=== PATIENT | male | born 1960 | race Caucasian/White ===

== ENCOUNTER 2016-12-20 23:24 | Inpatient (IN) | payer MEDICAID, OTHER ==
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
[2016-12-21] MEDS ORDERED: MAGNESIUM HYDROXIDE 2,400 MG/10 ML CUP PO PRN (09:32)
[2016-12-21] MEDS ORDERED: MAG HYDROX/AL HYDROX/SIMETH 30 ML CUP PO PRN (09:32)
[2016-12-21] MEDS ORDERED: ACETAMINOPHEN TAB 325 MG TAB PO PRN (09:32)
[2016-12-21 10:04] VITALS: BMI 37.3
[2016-12-21] MEDS ORDERED: ESCITALOPRAM 10 MG TAB PO SCH (12:30)
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
[2016-12-21] MEDS: ARIPiprazole 5 MG TAB PO SCH (15:05)
[2016-12-21] MEDS: MIRTAZAPINE 15 MG TAB PO SCH (21:41)
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
[2016-12-22] MEDS: ARIPiprazole 5 MG TAB PO SCH (09:00)
[2016-12-22] MEDS: LORazepam 1 MG TAB PO PRN (09:01)
[2016-12-22 09:38] LABS: Basophils % (A) 1 %; CH 32.6; CHCM 34.6; Eosinophils # (A) 0.1 k/uL (0-0.7); Eosinophils % (A) 2 %; HDW 2.51; HGB 15.8 gm/dL (13.0-17.5); Luc # (Auto) 0.08; Luc % (Auto) 1; Lymphocytes % (A) 18 %; MCH 31.7 pg (25.0-35.0); MCHC 33.5 g/dL (31.0-37.0); MCV 94.6 fL (80.0-100.0); Mean Platelet Volume 8.3; Monocytes # (A) 0.4 k/uL (0-1.0); Monocytes % (A) 6 %; Neutrophils % (A) 71 %; RBC 4.96 m/uL (4.30-5.90); RDW 12.6 % (11.5-15.5); WBC 5.5 k/uL (3.8-10.6); WBC (Perox) 5.23
[2016-12-22 09:49] LABS: ALT 38 U/L (21-72); AST 25 U/L (17-59); Alkaline Phosphatase 62 U/L (38-126); Anion Gap 10 mmol/L; Blood Urea Nitrogen 17 mg/dL (9-20); Calcium 9.3 mg/dL (8.4-10.2); Carbon Dioxide 25 mmol/L (22-30); Chloride 107 mmol/L (98-107); Glucose 183 mg/dL (74-99); Non-African American GFR(MDRD) >60 (>60 ml/min/1.73 sqM); Potassium 4.2 mmol/L (3.5-5.1); Sodium 142 mmol/L (137-145); Total Bilirubin 0.7 mg/dL (0.2-1.3)
[2016-12-22] MEDS: FOLIC ACID 1 MG TAB PO SCH (12:40)
[2016-12-22] MEDS: THIAMINE 100 MG TAB PO SCH (12:40)
--- NOTE | 2016-12-22 15:34 | P.PN ---
Progress Note - Text Interval history: Patient seen in cross coverage today for Dr. Nuñez. He reports that he is tossing and turning last night in terms of sleep. Seems to relay that he didn't sleep that well. He is eating well. He does not voice any adverse psychotropic medication side effects. He denies any alcohol withdrawal symptoms. Relays his been taking the Ativan like once a day. He feels his mood is about the same. Mental status exam: He is alert and cooperative with the interview. His speech is fluent, not rapid or pressured. Thought processes are organized. His mood he describes is about the same. He continues to describe some depression. He denies any thoughts of harm to self or others. No evidence of psychosis or agitation. Plan: We'll maintain current psychotropic medications. Dr. Nuñez to initiate care this patient starting tomorrow. Monitor for any medication side effects. Continue to monitor his response to the medication regimen.
[2016-12-22] MEDS: NICOTINE POLACRILEX 2 MG GUM BUCCAL PRN (17:23)
[2016-12-22] MEDS: MIRTAZAPINE 15 MG TAB PO SCH (20:40)
[2016-12-23] MEDS: ARIPiprazole 5 MG TAB PO SCH (08:32)
[2016-12-23] MEDS: NICOTINE POLACRILEX 2 MG GUM BUCCAL PRN (08:32)
[2016-12-23] MEDS: FOLIC ACID 1 MG TAB PO SCH (11:42)
[2016-12-23] MEDS: THIAMINE 100 MG TAB PO SCH (11:42)
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
[2016-12-23] MEDS ORDERED: ARIPiprazole 5 MG TAB PO ONE (12:30)
[2016-12-23] MEDS: LORazepam 1 MG TAB PO PRN (19:52)
[2016-12-23] MEDS: MIRTAZAPINE 15 MG TAB PO SCH (20:57)
[2016-12-23] MEDS ORDERED: cloNIDine HCL 0.1 MG TAB PO STA (21:17)
[2016-12-24] MEDS: ARIPiprazole 10 MG TAB PO SCH (08:52)
[2016-12-24] MEDS: amLODIPine 10 MG TAB PO SCH (08:52)
[2016-12-24] MEDS: FOLIC ACID 1 MG TAB PO SCH (12:26)
[2016-12-24] MEDS: THIAMINE 100 MG TAB PO SCH (12:26)
[2016-12-24] MEDS: NICOTINE POLACRILEX 2 MG GUM BUCCAL PRN ×2 (12:27→20:14)
--- NOTE | 2016-12-24 13:55 | P.PN ---
Progress Note - Text SUBJECTIVE: I reviewed the medical record, interviewed Mr. Silvestre and discuss his treatment and treatment plan during team meeting. He described continued feelings depression. He has occasional thoughts of suicide but denied denied suicidal plan or intent. We talked about the circumstances leading to this admission and he conceded that it may be related to his disappointment with his last three-quarter house. He feels that his depression at admission to the unit was among the most severe case experience recently. He is concerned about recurrent episodes of depression and frustrated that the psychotropic medications have not prevented to recurrence of the depressive episodes. He completed a Rogers Depression Inventory his total score was 31 consistent with severe symptoms of depression. On the suicide question he rated the item "I have thoughts of killing myself, but I would not carry them out." OBJECTIVE: He presented as a casually groomed moderately obese 56-year-old male who was pleasant on approach. He maintained eye contact and attended to interview. He had a distressed facial expression. He showed psychomotor retardation but no abnormal involuntary movements. His speech was spontaneous with decreased rate and rhythm. His affect was depressed and not reactive. He describes suicidal ideations but denied plan or intent. He denied homicidal ideation. He expressed depressive cognitions including hopelessness, helplessness and worthlessness. He obsessed over his illness and ruminated on the recurrent depressive episodes. He did not express ideas reference or paranoid ideation. His thinking was concrete but his associations were coherent and logical. He denied hallucinations and did not appear to be responding to internal stimuli. His blood pressure was elevated on 12/23/2016 with systolic readings in a range of 169-172. He received 0.1 mg Catapres on the evening of 12/23/2016 which brought the blood pressure down to 135/69. His the intravenous restarted Norvasc 10 mg daily and his blood pressure this morning was 147/74. ASSESSMENT: He continues have signs and symptoms of depression with intermittent suicidal thoughts without plan or intent. PLAN: Continue inpatient hospitalization due to the severity of depression and continued suicidal thoughts. Continue current dose of Abilify (10 mg) and Remeron 15 mg at bedtime. Increase Remeron to 30 mg at bedtime and 2-5 days. Continue suicide precautions with 15 minute checks. Encourage participation in therapeutic groups and activities. Evaluate clinical status response to treatment daily basis.
[2016-12-24] MEDS: MIRTAZAPINE 15 MG TAB PO SCH (20:13)
[2016-12-25 06:27] VITALS: RESP 12; TEMP 97.6
[2016-12-25] MEDS: ARIPiprazole 10 MG TAB PO SCH (08:18)
[2016-12-25] MEDS: NICOTINE POLACRILEX 2 MG GUM BUCCAL PRN ×2 (08:19→20:14)
[2016-12-25] MEDS: amLODIPine 10 MG TAB PO SCH (08:19)
[2016-12-25] MEDS: THIAMINE 100 MG TAB PO SCH (12:17)
[2016-12-25] MEDS: FOLIC ACID 1 MG TAB PO SCH (12:17)
--- NOTE | 2016-12-25 13:32 | P.PN ---
Progress Note - Text SUBJECTIVE: I reviewed the medical record, interviewed Mr. Silvestre and discuss his treatment and treatment plan during team meeting. He stated he feels less depressed than he did on admission and denies experiencing current suicidal thoughts or ideation. He remains concerned about discharge and fears that unless he enters a supportive program he would relapse to alcohol use. He understands that he may not be able to enter [facility] immediately after discharge. He talked about [facility] as an interim residential option until he can enter [facility] program. He described an experience where just before falling asleep last night he heard "chatter" in the hallway as though he were listening to the television. The experience was so convincing that he got a bed to check if there are people in the hallway talking. He denied having had this experience before and denied having the experience since he woke this morning. OBJECTIVE: He presented as a neatly groomed 56-year-old male who was pleasant on approach. He maintained eye contact and attended to interview. He had a blunted facial expression. He was alert and oriented to person, place and time. He showed slight psychomotor retardation but no abnormal involuntary movements. His speech was spontaneous with decreased rate, rhythm and volume. His affect was depressed. He denied suicidal ideation or wishes. He denied homicidal ideation. He denied depressive cognitions such as hopelessness, helplessness and worthlessness. He ruminated about his alcohol use and his need for continued supportive treatment. He did not express ideas reference or paranoid ideation. His thinking was abstract and his associations were coherent and logical. He denied hallucinations and did not appear to be responding to internal stimuli. ASSESSMENT: He has no signs or symptoms of alcohol withdrawal. He has continued symptoms depression but is now despite and suicidal ideation. He understands the need for continued substance use treatment and we are awaiting a decision from [facility] rehabilitation program. Possible hypnagogic hallucination. PLAN: Continue inpatient hospitalization due to continued depressive symptoms. Continue Abilify 10 mg daily and mirtazapine 15 mg at bedtime. Titrate the dose of mirtazapine according to clinical response side effects. Social work to coordinate discharge to either [facility] or substance abuse treatment program. Encouraged continued participation in therapeutic groups and activities. Evaluate clinical status response to treatment daily basis.
[2016-12-25] MEDS: MIRTAZAPINE 15 MG TAB PO SCH (20:13)
[2016-12-26 06:03] VITALS: BP 137/87; PULSE 70
[2016-12-26] MEDS: NICOTINE POLACRILEX 2 MG GUM BUCCAL PRN (08:31)
[2016-12-26] MEDS: ARIPiprazole 10 MG TAB PO SCH (08:32)
[2016-12-26] MEDS: amLODIPine 10 MG TAB PO SCH (08:32)
[2016-12-26 10:12] LABS: Appearance,Urine Clear (Clear); Bilirubin,Urine Negative (Negative); Glucose,Urine (UA) Negative (Negative); Ketones,Urine Negative (Negative); Leukocyte Esterase,Urine Negative (Negative); Nitrite,Urine Negative (Negative); PH, Urine 5.5 (5.0-8.0); Protein,Urine Negative (Negative); Specific Gravity,Urine 1.005 (1.001-1.035); UA Billing (MACRO vs. MICRO) CHEM; Urobilinogen,Urine <2.0 mg/dL (<2.0)
[2016-12-26] MEDS: FOLIC ACID 1 MG TAB PO SCH (11:41)
[2016-12-26] MEDS: THIAMINE 100 MG TAB PO SCH (11:42)
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
== END 2016-12-26 14:00 | disposition home or self-care (01) | DRG 885 ==
LOC: EC 23:24 → 3MHU 12-21 08:12
PROVIDERS: ADMIT Psychiatry & Neurology Psychiatry; ATTEND Psychiatry & Neurology Psychiatry
DX: F33.9 Major depressive disorder, recurrent, unspecified (principal); F10.231 Alcohol dependence with withdrawal delirium; R45.851 Suicidal ideations; F41.0 Panic disorder [episodic paroxysmal anxiety]; F41.1 Generalized anxiety disorder; F43.10 Post-traumatic stress disorder, unspecified; G43.909 Migraine, unspecified, not intractable, without status migrainosus; I10 Essential (primary) hypertension; K59.00 Constipation, unspecified; Z79.899 Other long term (current) drug therapy; Z82.49 Family history of ischemic heart disease and other diseases of the circulatory system; Z91.5 Personal history of self-harm
CPT/HCPCS: 36415; 80053; 80306; 81003; 82075; 82272; 84443; 85025; 99285

== ENCOUNTER → 2017-02-24 | Outpatient (CLI) | payer OTHER ==
--- NOTE | 2017-02-24 09:15 | CT ---
EXAMINATION TYPE: CT ankle RT wo con DATE OF EXAM: 02/24/2017 8:40 AM COMPARISON: Correlation radiographs 08/25/2013 HISTORY: 56-year-old male, arthrodesis status, right ankle fusion TECHNIQUE: Contiguous axial scanning of the right ankle without IV contrast. Coronal and sagittal rec onstructions performed. 3-D reconstructions generated on a dedicated independent workstation. CT DLP: 266 mGycm Automated exposure control for dose reduction was used. FINDINGS: There is osteopenia and muscular atrophy. Nonspecific subcutaneous soft tissue edema. Postsurgical resection of the distal fibula with the 10 to 11 cm length of distal fibula interposed a cross the tibiotalar and subtalar joints. Along the plantar aspect of the mid calcaneal body, the dis cassy fibula/lateral malleolus projects inferior to the calcaneal cortex by approximately 1.8 cm into t he plantar soft tissues, refer to coronal image 17 and sagittal image 16 and 17. There is complete bony ankylosis across the tibiotalar joint. Extensive satisfactory bony ankylosis a cross the anterior, middle, and posterior subtalar joints. There is degenerative change at the talona vicular joint with bulky dorsal spurring. Spurring along the medial margin of the medial malleolus along the course of the posterior tibial ten don, axial image 44. No acute fracture or dislocation. IMPRESSION: 1. RESECTION OF THE LAST 10 TO 11 CM OF THE FIBULA SERVING BONE GRAFT ACROSS THE TIBIOTALAR AND MARIA BTALAR JOINTS. THE DISTAL FIBULA/LATERAL MALLEOLUS PROJECTS BELOW THE INFERIOR CALCANEAL CORTEX INTO THE PLANTAR SOFT TISSUES NOTED ABOVE. ANY SIGNIFICANCE OF THIS WOULD HAVE TO BE DETERMINED CLINICA LLY. 2. SATISFACTORY BONY ANKYLOSIS ACROSS BOTH TIBIOTALAR AND SUBTALAR JOINTS. 3. DEGENERATIVE CHANGE AT THE TIBIOTALAR JOINT WITH BULKY DORSAL SPURRING. 4. SPURRING AT THE MEDIAL MALLEOLUS ALONG THE COURSE OF THE PTT CAN BE SEEN IN THE SETTING OF POSTERI OR TIBIAL TENDON DYSFUNCTION. 5. DIFFUSE OSTEOPENIA AND MUSCULAR ATROPHY.
== END | disposition home or self-care (01) ==
LOC: RADCTMAIN 07:59
PROVIDERS: ATTEND Podiatrist Foot & Ankle Surgery
DX: M24.671 Ankylosis, right ankle (principal); M77.51 Other enthesopathy of right foot and ankle; M85.871 Other specified disorders of bone density and structure, right ankle and foot; M62.571 Muscle wasting and atrophy, not elsewhere classified, right ankle and foot; Z98.1 Arthrodesis status

== ENCOUNTER 2017-04-17 10:17 | Day surgery (SDC) | payer OTHER ==
[2017-04-14 15:52] VITALS: BMI 38.0
[~2017-04-17 10:17] MED LIST: LACTATED RINGERS 1,000 ML IV SCH; LIDOCAINE 1% 20 ML VIAL (10MG/ML) FOR IV START INTRADERMA PRN
[2017-04-17 10:49] VITALS: RESP 16; TEMP 97.4
[2017-04-17] MEDS ORDERED: PROPOFOL 10 MG/ML 20 ML VIAL IV ONE (11:09)
[2017-04-17] MEDS ORDERED: fentaNYL (PF) 50 MCG/ML 2 ML AMP ONE (11:09)
[2017-04-17] MEDS ORDERED: LIDOCAINE 1% INJ 10MG/ML (20 ML MDV) ONE (11:09)
--- NOTE | 2017-04-17 11:41 | P.PCN ---
Date of Procedure: 04/17/17 Preoperative Diagnosis: History of GI bleed, screening for colon cancer Postoperative Diagnosis: Diverticulosis, Rectal polyp Procedure(s) Performed: Colonoscopy with biopsy using cold biopsy forceps Implants: Anesthesia: RAMON Surgeon: Yari Martins Pathology: other Indications for Procedure: Operative Findings: Description of Procedure: The patient was brought to the endoscopy suite and placed in lateral decubitus position. IV sedation was given as per anesthesia team. A timeout was performed to verify correct patient and correct procedure. Perianal examination did not reveal any external hemorrhoids. Digital rectal examination was performed. Normal prostate. A well-lubricated endoscope was passed per rectally and was gradually advanced beyond the sigmoid colon, splenic flexure, transverse colon, hepatic flexure and cecum. The ileocecal valve was visualized. Then minimal diverticulosis noted without any evidence of diverticulitis. Scope was gradually withdrawn inspecting all the mucosal surfaces. A polyp was seen in the the rectum and completely removed with the help of a cold biopsy forceps. Bowel prep was good. No other polyps or masses noted. Retroflexed in the rectum and there was no hemorrhoid was noted which was not bleeding at this time.The scope was gradually withdrawn. Patient tolerated the procedure well and was taken to post anesthesia care unit in stable condition. Recommend repeat colonoscopy in 10 years Plan - Discharge Summary New Discharge Prescriptions: No Action ARIPiprazole [Abilify] 10 mg PO DAILY 30 Days amLODIPine [Norvasc] 10 mg PO DAILY 30 Days Mirtazapine [Remeron] 15 mg PO HS PRN PRN Reason: Insomnia Naltrexone HCl [Revia] 50 mg PO DAILY traZODone HCL 200 mg PO HS PRN PRN Reason: Insomnia Discharge Medication List ARIPiprazole [Abilify] 10 mg PO DAILY 30 Days 12/26/16 [Rx] amLODIPine [Norvasc] 10 mg PO DAILY 30 Days 12/26/16 [Rx] Mirtazapine [Remeron] 15 mg PO HS PRN 02/25/17 [History] Naltrexone HCl [Revia] 50 mg PO DAILY 04/14/17 [History] traZODone HCL 200 mg PO HS PRN 04/14/17 [History]
[2017-04-17 12:10] VITALS: BP 130/76; PULSE 69
== END 2017-04-17 12:23 | disposition home or self-care (01) ==
LOC: ORWHC2ENDO 10:17
PROVIDERS: ATTEND Surgery
DX: Z12.11 Encounter for screening for malignant neoplasm of colon (principal); K62.1 Rectal polyp; K57.30 Diverticulosis of large intestine without perforation or abscess without bleeding; I10 Essential (primary) hypertension; F31.9 Bipolar disorder, unspecified; Z79.899 Other long term (current) drug therapy; Z87.19 Personal history of other diseases of the digestive system
CPT/HCPCS: 45380; 88305; J2001; J3010; J2704

== ENCOUNTER 2017-05-07 10:11 | Inpatient (IN) | payer MEDICAID, OTHER ==
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
[2017-05-07] MEDS ORDERED: MAGNESIUM HYDROXIDE 2,400 MG/10 ML CUP PO PRN (13:20)
[2017-05-07] MEDS ORDERED: ACETAMINOPHEN TAB 325 MG TAB PO PRN (13:20)
[2017-05-07] MEDS ORDERED: traZODone HCL 50 MG TAB PO PRN (13:22)
[2017-05-07 14:47] LABS: Appearance,Urine Clear (Clear); Bilirubin,Urine Negative (Negative); Glucose,Urine (UA) Negative (Negative); Ketones,Urine 1+ (Negative); Leukocyte Esterase,Urine Negative (Negative); Mucus,Urine Rare /hpf; Nitrite,Urine Negative (Negative); PH, Urine 6.5 (5.0-8.0); Particle Count 1908; Protein,Urine Trace (Negative); RBC,Urine 2 /hpf (0-5); Specific Gravity,Urine 1.016 (1.001-1.035); Squamous Epithelial Cell,Urine <1 /hpf (0-4); UA Billing (MACRO vs. MICRO) MICRO; Urobilinogen,Urine <2.0 mg/dL (<2.0); WBC,Urine 1 /hpf (0-5)
[2017-05-07] MEDS: NICOTINE 14MG/24HR PATCH TRANSDERM SCH (16:07)
[2017-05-07] MEDS: MAG HYDROX/AL HYDROX/SIMETH 30 ML CUP PO PRN (19:20)
[2017-05-07] MEDS: ARIPiprazole 10 MG TAB PO SCH (20:00)
[2017-05-08] MEDS: LORazepam 1 MG TAB PO PRN ×2 (05:33→12:25)
[2017-05-08 07:44] LABS: Basophils % (A) 1 %; CH 31.5; Eosinophils # (A) 0.1 k/uL (0-0.7); Eosinophils % (A) 1 %; HCT 40.3 % (39.0-53.0); HDW 2.84; HGB 14.1 gm/dL (13.0-17.5); Luc # (Auto) 0.12; Luc % (Auto) 2; Lymphocytes % (A) 15 %; MCH 30.7 pg (25.0-35.0); MCV 87.8 fL (80.0-100.0); Mean Platelet Volume 9.2; Monocytes # (A) 0.4 k/uL (0-1.0); Monocytes % (A) 6 %; Neutrophils # (A) 5.2 k/uL (1.3-7.7); Neutrophils % (A) 76 %; RBC 4.58 m/uL (4.30-5.90); RDW 12.7 % (11.5-15.5); WBC 6.9 k/uL (3.8-10.6); WBC (Perox) 6.97
[2017-05-08 08:01] LABS: ALT 35 U/L (21-72); AST 29 U/L (17-59); Alkaline Phosphatase 65 U/L (38-126); Anion Gap 10 mmol/L; Blood Urea Nitrogen 11 mg/dL (9-20); Calcium 8.8 mg/dL (8.4-10.2); Carbon Dioxide 28 mmol/L (22-30); Chloride 103 mmol/L (98-107); Glucose 104 mg/dL (74-99); Non-African American GFR(MDRD) >60 (>60 ml/min/1.73 sqM); Potassium 3.7 mmol/L (3.5-5.1); Sodium 141 mmol/L (137-145); Total Bilirubin 0.9 mg/dL (0.2-1.3)
[2017-05-08] MEDS ORDERED: ESCITALOPRAM 10 MG TAB PO SCH (09:00)
[2017-05-08] MEDS: amLODIPine 10 MG TAB PO SCH (09:49)
[2017-05-08] MEDS: NALTREXONE HCL 50 MG TAB PO SCH (09:49)
[2017-05-08] MEDS: NICOTINE 14MG/24HR PATCH TRANSDERM SCH (09:50)
[2017-05-08] MEDS: buPROPion XL 150 MG TAB.ER.24H PO SCH (10:17)
[2017-05-08] MEDS: LOPERAMIDE 2 MG CAP PO PRN ×2 (12:24→21:52)
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
[2017-05-08 18:04] VITALS: BMI 36.4
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
[2017-05-08] MEDS: ARIPiprazole 10 MG TAB PO SCH (20:26)
[2017-05-08] MEDS ORDERED: MIRTAZAPINE 15 MG TAB PO SCH (21:00)
[2017-05-08] MEDS: MAG HYDROX/AL HYDROX/SIMETH 30 ML CUP PO PRN (21:52)
[2017-05-09] MEDS: LOPERAMIDE 2 MG CAP PO PRN ×3 (09:09→20:13)
[2017-05-09] MEDS: buPROPion XL 150 MG TAB.ER.24H PO SCH (09:09)
[2017-05-09] MEDS: NICOTINE 14MG/24HR PATCH TRANSDERM SCH (09:09)
[2017-05-09] MEDS: NALTREXONE HCL 50 MG TAB PO SCH (09:09)
[2017-05-09] MEDS: amLODIPine 10 MG TAB PO SCH (09:09)
--- NOTE | 2017-05-09 10:11 | P.PN ---
Progress Note - Text Interval history: The patient is found in group he follows me to an interview room. He reports that he did not have a good night last night. He struggle with sleep and his mood was depressed hopeless and he had continued suicidal thoughts. He feels that he is just recovering from a gastrointestinal virus and he reports having diarrhea last night and today. He does not believe that this is medication related. I did review recent [facility] mental health notes it appeared that he had recently been taken off of Remeron due to a report of vivid dreams. We discussed this further and decided not to use Remeron. We will trial doxepin for sleep. Mental status exam: The patient is an overweight male he is disheveled he ambulates with a limp he is dressed in hospital gowns. Eye contact is appropriate speech is fluent spontaneous nonpressured. He endorses a depressed mood with hopelessness thinking and continued suicidal thoughts. When asked about his mood today he states "not good". He reports no homicidal ideation. He endorses no auditory or visual hallucinations no specific delusions. There is no evidence of psychosis. Insight and judgment are limited. He remains oriented to person place and date. He demonstrates no verbal or physical aggressiveness. His affect is bland. There is no evidence of tangential thinking loose associations or flight of ideas he does not appear hypomanic or manic. Plan: The patient will continue on his current medications however we will discontinue the Remeron and initiate doxepin 10 mg at bedtime. He is encouraged to continue participating in the milieu. We will monitor him for safety. He requires continued psychiatric hospitalization for acute safety reasons. Vital signs reviewed her blood pressure remains elevated this has been evaluated by internal medicine we will monitor further.
[2017-05-09] MEDS: ARIPiprazole 10 MG TAB PO SCH (20:11)
[2017-05-09] MEDS: DOXEPIN 10 MG CAP PO SCH (20:11)
[2017-05-09] MEDS: MAG HYDROX/AL HYDROX/SIMETH 30 ML CUP PO PRN (20:12)
[2017-05-09] MEDS: LORazepam 1 MG TAB PO PRN (20:48)
[2017-05-10] MEDS: PANTOPRAZOLE 40 MG TABLET PO SCH (08:03)
[2017-05-10] MEDS: amLODIPine 10 MG TAB PO SCH (08:03)
[2017-05-10] MEDS: buPROPion XL 150 MG TAB.ER.24H PO SCH (08:03)
[2017-05-10] MEDS: NICOTINE 14MG/24HR PATCH TRANSDERM SCH ×2 (08:03→08:09)
[2017-05-10] MEDS: NALTREXONE HCL 50 MG TAB PO SCH (08:03)
[2017-05-10] MEDS: LOPERAMIDE 2 MG CAP PO PRN (08:04)
[2017-05-10] MEDS: MAG HYDROX/AL HYDROX/SIMETH 30 ML CUP PO PRN (08:06)
--- NOTE | 2017-05-10 12:03 | P.PN ---
Progress Note - Text INTERVERAL HISTORY: Weekend call coverage for Dr. Shelley Patient reports his night was terrible, states he only got 4 hours of sleep. Asked how that compared with the Remeron and he stated actually it was better last night than the night before. States that it was terrible in part due to his gastrointestinal problem. States that he is unable to participate in any of the groups due to that. States that the hospitalists ordered a specimen of his stool so they may hear back if there is anything going on but he does think that it's getting better although it still bothering him. Patient states that he is afraid of the downward spiral and being suicidal, but that he is not as suicidal as he was when he came in. CIWA=1 MENTAL STATUS EXAM:Patient alert and oriented 3, good eye contact, fair groomed in hospital attire/street clothing. Speech normal volume, rate and production. Coherent, logical and goal directed thought process. No PAWEL, no FOI. [No TB/TW/ TI] Denied auditory and visual hallucinations. Denied paranoid ideation, delusions or IOR. Memory grossly intact Cognition average Mood dysphoric, affect constricted, congruent with mood. Denies suicidal ideation, denies homicidal ideation. Insight partial; Judgment grossly intact for treatment purposes Plan: Will continue the treatment plan and diagnosis. Continue on his current medications, however we will increase doxepin 20 mg at bedtime. He is encouraged to continue participating in the milieu. We will monitor him for safety. He requires continued psychiatric hospitalization for acute safety reasons. Vital signs reviewed his blood pressure remains slightly elevated but has improved, evaluated by internal medicine we will monitor further.
[2017-05-10] MEDS: DOXEPIN 10 MG CAP PO SCH (20:21)
[2017-05-10] MEDS: ARIPiprazole 10 MG TAB PO SCH (20:21)
[2017-05-11] MEDS: NALTREXONE HCL 50 MG TAB PO SCH (08:32)
[2017-05-11] MEDS: PANTOPRAZOLE 40 MG TABLET PO SCH (08:32)
[2017-05-11] MEDS: NICOTINE 14MG/24HR PATCH TRANSDERM SCH (08:32)
[2017-05-11] MEDS: amLODIPine 10 MG TAB PO SCH (08:32)
[2017-05-11] MEDS: buPROPion XL 150 MG TAB.ER.24H PO SCH (08:32)
--- NOTE | 2017-05-11 10:58 | P.PN ---
Progress Note - Text INTERVERAL HISTORY: Weekend call coverage for Dr. Shelley Patient reports he slept better and longer, but still feeling depressed. Says he will be doing ok and then a sudden drop and in deep depression, alternating with periods of feeling great. Did not endorse manic symptoms States his gastrointestinal problem is much better, can eat w/o pain, now he thinks he can participate in groups. Patient states that he is afraid of the downward spiral and being suicidal, but that he is not as suicidal as he was when he came in. CIWA=0 MENTAL STATUS EXAM:Patient alert and oriented 3, good eye contact, fair groomed in hospital attire/street clothing. Speech normal volume, rate and production. Coherent, logical and goal directed thought process. No PAWEL, no FOI. [No TB/TW/ TI] Denied auditory and visual hallucinations. Denied paranoid ideation, delusions or IOR. Memory grossly intact Cognition average Mood dysphoric, affect constricted, congruent with mood. Denies suicidal ideation, denies homicidal ideation. Insight partial; Judgment grossly intact for treatment purposes Plan: Will continue inpatient psychiatric hospitalization, for safety purposes and treatment. Increase Abilify to 15 mg daily at bedtime. Yesterday had intended to increase doxepin 20 mg at bedtime but failed to write the order so he still received 10 mg last night and reported improved sleep so will not change that now. He is encouraged to continue participating in the milieu. We will monitor him for safety and for response to treatment. Vital signs reviewed his blood pressure remains slightly elevated but has improved, evaluated by internal medicine we will monitor further.
[2017-05-11] MEDS: ARIPiprazole 15 MG TAB PO SCH (20:40)
[2017-05-11] MEDS: DOXEPIN 10 MG CAP PO SCH (20:40)
[2017-05-12] MEDS ORDERED: LORazepam 1 MG TAB ONE (01:20)
[2017-05-12] MEDS: PANTOPRAZOLE 40 MG TABLET PO SCH (07:52)
[2017-05-12] MEDS: buPROPion XL 150 MG TAB.ER.24H PO SCH (08:23)
[2017-05-12] MEDS: amLODIPine 10 MG TAB PO SCH (08:23)
[2017-05-12] MEDS: NALTREXONE HCL 50 MG TAB PO SCH (08:23)
[2017-05-12] MEDS: NICOTINE 14MG/24HR PATCH TRANSDERM SCH (08:23)
--- NOTE | 2017-05-12 10:00 | P.PN ---
Progress Note - Text Interval history: The patient is found in group he follows me to an interview room. He reports still struggling with racing thoughts his Abilify was increased to 15 mg at bedtime over the weekend. He states he continues to have difficulty with sleep. We discussed titrating the doxepin further. He states his son did reach him via phone and his son was upset that he didn't know the patient was here for the last week. The patient states that he feels shame and has not discussed how he has been doing with his sons. He reports they don't know that he rented a hotel room for 2 days and contemplated ending his life. He does describe feeling lonely but feels he is in no position to be in a relationship. We discussed his current medications his questions were answered. He states that his stomach is feeling better and the diarrhea has stopped. Mental status exam: The patient is an alert overweight male hygiene grooming improved he is dressed in hospital gowns. Eye contact is appropriate speech is fluent and spontaneous nonpressured. He maintains a constricted affect with little expressive change. He continues to feel hopeless down and endorses racing thoughts. He demonstrates no tangential thinking loose associations or flight of ideas. He demonstrates no verbal or physical aggressiveness. There is no evidence or report of psychosis at this time. He remains oriented to person place and date. No abnormal involuntary movements observed. He is reporting no homicidal ideation. He does still have suicidal thoughts but feels safe here in the hospital. Plan: The patient will continue on his current medication the Abilify has recently been titrated. I will increase the doxepin to 20 mg at bedtime. He is encouraged to discuss his current feelings with his adult sons and they will likely be involved in a family meeting facilitated by social work. We will continue to monitor him for safety. His blood pressure remains elevated we will continue to monitor. He may require addition of another antihypertensive medication.
[2017-05-12] MEDS: DOXEPIN 10 MG CAP PO SCH (21:00)
[2017-05-12] MEDS: ARIPiprazole 15 MG TAB PO SCH (21:00)
[2017-05-13] MEDS: NICOTINE 14MG/24HR PATCH TRANSDERM SCH (08:11)
[2017-05-13] MEDS: buPROPion XL 150 MG TAB.ER.24H PO SCH (08:11)
[2017-05-13] MEDS: NALTREXONE HCL 50 MG TAB PO SCH (08:11)
[2017-05-13] MEDS: PANTOPRAZOLE 40 MG TABLET PO SCH (08:11)
[2017-05-13] MEDS: amLODIPine 10 MG TAB PO SCH (08:12)
--- NOTE | 2017-05-13 09:57 | P.PN ---
Progress Note - Text Interval history: The patient is found in group he follows me to an interview room. He states he still has feelings of "being lost" and feels like his mood is "teetering". He feels very depressed he finds that he is quickly tearful. He made an effort to contact his son to bring him in for a family meeting as he decided he will reveal to his son how he has been struggling. We will ask social work to assist him in this effort. He was able to sleep better last night with the doxepin. We discussed titrating the Wellbutrin further and he is agreeable. Mental status exam: The patient is an overweight male he is dressed in hospital gowns. Hygiene grooming adequate. Speech is fluent and spontaneous. He is tearful during the session and endorses a depressed hopeless mood. He continues to have suicidal ideation. No homicidal ideation present. He is endorsing no auditory or visual hallucinations or specific delusions there is no evidence of psychosis. Insight and judgment limited. He remains oriented to person place and date. He demonstrates no verbal or physical aggressiveness. Plan: We will continue his current medications but we'll titrate the Wellbutrin XL to 300 mg daily. We will continue to monitor him for safety. Social work will contact the patient's son to arrange a family meeting and the patient is encouraged to be candid with his son describing the symptoms he has been experiencing. The patient indicates he does not wish to return to the same residence upon discharge. Vital signs reviewed blood pressure mildly improved. The patient has been attending groups he is encouraged to continue doing so.
[2017-05-13] MEDS: DOXEPIN 10 MG CAP PO SCH (21:01)
[2017-05-13] MEDS: ARIPiprazole 15 MG TAB PO SCH (21:01)
[2017-05-14] MEDS: amLODIPine 10 MG TAB PO SCH (08:12)
[2017-05-14] MEDS: PANTOPRAZOLE 40 MG TABLET PO SCH (08:12)
[2017-05-14] MEDS: NALTREXONE HCL 50 MG TAB PO SCH (08:12)
[2017-05-14] MEDS: NICOTINE 14MG/24HR PATCH TRANSDERM SCH (08:12)
[2017-05-14] MEDS: buPROPion XL 300 MG TAB.ER.24H PO SCH (08:12)
[2017-05-14] MEDS: LORazepam 1 MG TAB PO PRN (13:46)
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
[2017-05-14] MEDS: ARIPiprazole 15 MG TAB PO SCH (21:39)
[2017-05-14] MEDS: DOXEPIN 10 MG CAP PO SCH (21:39)
[2017-05-15] MEDS: PANTOPRAZOLE 40 MG TABLET PO SCH (07:48)
[2017-05-15] MEDS: NALTREXONE HCL 50 MG TAB PO SCH (09:00)
[2017-05-15] MEDS: NICOTINE 14MG/24HR PATCH TRANSDERM SCH (09:00)
[2017-05-15] MEDS: buPROPion XL 300 MG TAB.ER.24H PO SCH (09:01)
[2017-05-15] MEDS: amLODIPine 10 MG TAB PO SCH (09:01)
[2017-05-15] MEDS: LORazepam 1 MG TAB PO PRN (09:02)
--- NOTE | 2017-05-15 10:12 | P.PN ---
Progress Note - Text Interval history: The patient is found in the hallway he follows me to an interview room. He did have the phone family with his oldest son here in town. He states the meeting did not go very well but he still has some sense of relief that he had "confronted his own denial". He states the meeting was particularly challenging as his son's fiance was on the call as well. He feels that his son is still angry with him due to his prior alcohol use. The patient plans on discussing his circumstances with his youngest son who resides in [place]. The patient has no questions regarding his medications he feels that things are slowly improving he states that he could be ready for discharge as soon as tomorrow. He plans on staying at a local assisted until he receives his next check. Mental status exam: The patient is an overweight male he is appearing his stated age she is dressed in hospital attire. Hygiene is adequate. Eye contact is appropriate speech is fluent and spontaneous nonpressured. He denies having any acute suicidal ideation intent or plan. No homicidal ideation intent or plan. He demonstrates no verbal or physical aggressiveness. Affect remains constricted. He does not appear hypomanic or manic. He remains oriented to person place and date. He initiates conversation he is cooperative during the interview. Plan: The patient will continue on his current medication we continue to encourage his participation in the milieu and assess him for safety. We will consider discharging him tomorrow if he is clinically stable. Vital signs reviewed blood pressure seems to be fluctuating.
[2017-05-15] MEDS: DOXEPIN 10 MG CAP PO SCH (20:05)
[2017-05-15] MEDS: ARIPiprazole 15 MG TAB PO SCH (20:05)
[2017-05-16 06:42] VITALS: RESP 18; TEMP 97.7
[2017-05-16] MEDS: NALTREXONE HCL 50 MG TAB PO SCH (08:04)
[2017-05-16] MEDS: PANTOPRAZOLE 40 MG TABLET PO SCH (08:04)
[2017-05-16] MEDS: buPROPion XL 300 MG TAB.ER.24H PO SCH (08:05)
[2017-05-16] MEDS: amLODIPine 10 MG TAB PO SCH (08:05)
[2017-05-16 08:07] VITALS: BP 132/81; PULSE 85
--- NOTE | 2017-05-16 09:30 | P.DS ---
Providers Date of admission: 05/07/17 13:17 Expected date of discharge: 05/16/17 Attending physician: Demarcus Shelley Consults: 05/07/17 13:20 Consult Physician Routine Consulting Provider: Michelle Willoughby Consult Reason/Comments: Follow UP H & P Do you want consulting provider notified?: Yes Primary care physician: Veronica Trent - Discharge Diagnosis(es) (1) Bipolar 2 disorder Current Visit: Yes Status: Acute Priority: High (2) Alcohol use disorder Current Visit: Yes Status: Acute Priority: Medium Hospital Course: Brief summary of admission note: This patient is a 57-year-old male who was admitted to the mental health unit through the emergency room for suicidal ideation. The patient presented stating he was depressed hopeless and was having thoughts of killing himself via overdose. He reported a history of bipolar 2 disorder specifically having 2 episodes of hypomania in the past. He has had numerous episodes of depression. For full details please refer to my psychiatric evaluation dated 05/08/2017. Summary of hospital course: The patient was admitted to the mental health unit he signed in voluntarily. We reviewed his presenting symptoms and medication options. He was continued on Abilify we reinitiated Remeron but after reviewing notes from [facility] we decided to discontinue that medication due to prior reports of vivid dreams. We initiated Wellbutrin XL and titrated to 300 mg daily for symptoms of depression. Doxepin was used and titrated for sleep. He was continued on naltrexone. The patient reported a slow improvement of mood and symptoms while here. He was involved in a phone family meeting with his eldest son who lives locally. The patient states he is glad he made that contact but it did not go well. The patient's son and fianc ventilated their frustrations towards him without any support offered. He states he has a son in [place] whom he speaks to frequently who is supportive. The patient does not wish to return to treatment housing he was attending prior to this admission and plans on attending the prison until he gets his next check at the beginning of next month. He is willing to continue working with community [facility] for outpatient services. He feels it is not necessary to attend inpatient chemical dependency treatment. Mental status exam: The patient is an alert male he is overweight he is dressed in hospital attire hygiene grooming are adequate. Eye contact is good speech is fluent spontaneous nonpressured. He reports his mood is better. He is reporting no acute suicidal or homicidal ideation intent or plan. He is reporting no auditory or visual hallucinations he reports no specific delusions. There is no evidence of psychosis. He demonstrates no pressured speech he reports no racing thoughts there is no evidence of current hypomanic or manic symptoms. He demonstrates no verbal or physical aggressiveness. He remains oriented to person place and date. No abnormal involuntary movements observed. Affect is appropriately expresses including appropriate smiling. He is observed on the unit appropriately relating to peers. Impressions 1. Bipolar 2 disorder most recent depressed, alcohol use disorder, rule out posttraumatic stress disorder 2. Hypertension 3. Homelessness, financial strain, lack of local support other than [facility] Plan: The patient will be discharged from mental health unit today he plans on residing at the local prison. Social work will confirm his next appointment with community mental health center. He will continue on Abilify 15 mg daily Wellbutrin XL 300 mg daily doxepin 20 mg at bedtime naltrexone 50 mg daily. There is no imminent safety risk he is appropriate for transition to outpatient care. He does not feel as necessary to pursue any inpatient chemical dependency treatment at this time but he is willing to continue addressing alcohol use issues as an outpatient with community mental health center. He is instructed to return to the hospital if any acute safety concerns. Patient Condition at Discharge: Stable Plan - Discharge Summary New Discharge Prescriptions: New ARIPiprazole [Abilify] 15 mg PO HS #30 tab buPROPion XL [Wellbutrin XL] 300 mg PO DAILY #30 tab Doxepin [SINEquan] 20 mg PO HS #60 cap Nicotine 14Mg/24Hr Patch [Habitrol] 1 patch TRANSDERM DAILY #12 patch Continue amLODIPine [Norvasc] 10 mg PO DAILY 30 Days Naltrexone HCl [Revia] 50 mg PO DAILY #30 Discontinued traZODone HCL 200 mg PO HS PRN PRN Reason: Insomnia ARIPiprazole [Abilify] 10 mg PO HS Escitalopram [Lexapro] 10 mg PO DAILY Discharge Medication List ARIPiprazole [Abilify] 15 mg PO HS #30 tab 05/16/17 [Rx] Doxepin [SINEquan] 20 mg PO HS #60 cap 05/16/17 [Rx] Naltrexone HCl [Revia] 50 mg PO DAILY #30 05/16/17 [Rx] Nicotine 14Mg/24Hr Patch [Habitrol] 1 patch TRANSDERM DAILY #12 patch 05/16/17 [ Rx] amLODIPine [Norvasc] 10 mg PO DAILY 30 Days 05/16/17 [Rx] buPROPion XL [Wellbutrin XL] 300 mg PO DAILY #30 tab 05/16/17 [Rx] Follow up Appointment(s)/Referral(s): Veronica Trent MD [Primary Care Provider] - 1-2 days
[2017-05-16] MEDS: NICOTINE 14MG/24HR PATCH TRANSDERM SCH (09:36)
== END 2017-05-16 12:10 | disposition home or self-care (01) | DRG 885 ==
LOC: EC 10:11 → 3MHU 13:17
PROVIDERS: ADMIT Psychiatry & Neurology Psychiatry; ATTEND Psychiatry & Neurology Psychiatry
DX: F31.81 Bipolar II disorder (principal); R45.851 Suicidal ideations; I10 Essential (primary) hypertension; E66.3 Overweight; F43.10 Post-traumatic stress disorder, unspecified; Z59.0 Homelessness; Z79.899 Other long term (current) drug therapy; Z82.49 Family history of ischemic heart disease and other diseases of the circulatory system; Z82.5 Family history of asthma and other chronic lower respiratory diseases; Z91.410 Personal history of adult physical and sexual abuse; F10.10 Alcohol abuse, uncomplicated
CPT/HCPCS: 80053; 80306; 81001; 82075; 84443; 85025; 87324; 99285

== ENCOUNTER 2018-08-06 02:39 | Observation (INO) | payer MEDICARE, OTHER ==
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
[2018-08-06] MEDS ORDERED: NALOXONE 0.4 MG/ML 1 ML VIAL IV PRN (04:55)
[2018-08-06] MEDS: SODIUM CHLORIDE 0.9% 1,000 ML IV SCH (06:04)
[2018-08-06] MEDS ORDERED: LORazepam 2 MG/ML INJ IV PRN ×2 (08:18)
[2018-08-06] MEDS ORDERED: THIAMINE 100 MG/ML 2 ML VIAL IM STA (08:18)
[2018-08-06] MEDS ORDERED: INFLUENZA VACCINE (6 MOS+) 60 MCG/0.5 ML SYRINGE IM ONE (08:20)
[2018-08-06 08:49] LABS: HCT 45.7 % (39.0-53.0); HGB 15.7 gm/dL (13.0-17.5); MCH 32.8 pg (25.0-35.0); MCHC 34.4 g/dL (31.0-37.0); MCV 95.3 fL (80.0-100.0); Mean Platelet Volume 7.1; Platelet Count 161 k/uL (150-450); RDW 12.5 % (11.5-15.5); WBC 3.8 k/uL (3.8-10.6)
[2018-08-06 09:02] LABS: Anion Gap 12 mmol/L; Blood Urea Nitrogen 17 mg/dL (9-20); Calcium 8.3 mg/dL (8.4-10.2); Carbon Dioxide 26 mmol/L (22-30); Chloride 108 mmol/L (98-107); Glucose 99 mg/dL (74-99); Magnesium 2.1 mg/dL (1.6-2.3); Potassium 4.3 mmol/L (3.5-5.1); Sodium 146 mmol/L (137-145)
[2018-08-06 09:13] LABS: Alcohol 362 mg/dL
[2018-08-06] MEDS: 1: MVI, ADULT NO.4 WITH VIT K 10 ML, THIAMINE 100 MG, FOLIC ACID 1 MG in SODIUM CHLORIDE IV SCH ×8 (09:55→17:19)
[2018-08-06] MEDS: PANTOPRAZOLE 40 MG/10 ML VIAL IVP SCH (09:55)
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
[2018-08-06] MEDS: LORazepam 2 MG/ML INJ IV PRN ×4 (14:17→22:34)
[2018-08-06] MEDS: amLODIPine 5 MG TAB PO SCH (16:41)
[2018-08-06] MEDS: THIAMINE 100 MG TAB PO SCH (17:18)
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
[2018-08-07] MEDS: LORazepam 2 MG/ML INJ IV PRN ×4 (01:45→16:15)
[2018-08-07] MEDS: 1: MVI, ADULT NO.4 WITH VIT K 10 ML, THIAMINE 100 MG, FOLIC ACID 1 MG in SODIUM CHLORIDE IV SCH ×8 (05:44→18:13)
[2018-08-07] MEDS: SODIUM CHLORIDE 0.9% 1,000 ML IV SCH (07:57)
[2018-08-07] MEDS: amLODIPine 5 MG TAB PO SCH (07:58)
[2018-08-07] MEDS: THIAMINE 100 MG TAB PO SCH ×2 (07:58→18:35)
[2018-08-07] MEDS: PANTOPRAZOLE 40 MG/10 ML VIAL IVP SCH (07:58)
[2018-08-07] MEDS ORDERED: ONDANSETRON 4 MG/2 ML VIAL IVP PRN (11:46)
--- NOTE | 2018-08-07 13:18 | P.PN ---
Subjective Progress Note Date: 08/07/18 Principal diagnosis: Acute grief reaction with acute intoxication He was seen yesterday while he was still intoxicated and today he has no active suicidal plan nor any homicidal plan. When he is medically stable he can go home he has no emergent psychiatric need and should be seen by his primary care doctor and referred for therapy for the 2 loss of his 2 brothers. This is acute grief loss issues. Objective - Vital Signs Vital signs: Vital Signs Temp 98.2 F 08/07/18 06:02 Pulse 94 08/07/18 06:02 Resp 16 08/07/18 06:02 BP 164/94 08/07/18 06:02 Pulse Ox 96 08/07/18 06:02 Intake & Output 08/06/18 08/07/18 08/07/18 18:59 06:59 18:59 Output Total 1775 Balance -1775 Output: Urine 1775 Other: # Voids 2 1 - Labs CBC & Chem 7: 08/06/18 08:26 08/06/18 08:26 Labs: Abnormal Lab Results - Last 24 Hours (Table) 08/06/18 Range/Units 16:08 Serum Alcohol 219 H* mg/dL Assessment and Plan (1) Alcohol intoxication Current Visit: Yes Status: Acute Priority: High Code(s): F10.929 - ALCOHOL USE, UNSPECIFIED WITH INTOXICATION, UNSPECIFIED SNOMED Code(s): 77419725 (2) Alcohol withdrawal syndrome Current Visit: Yes Status: Acute Priority: High Code(s): F10.239 - ALCOHOL DEPENDENCE WITH WITHDRAWAL, UNSPECIFIED SNOMED Code(s): 534867351 (3) Altered mental status Current Visit: Yes Status: Acute Code(s): R41.82 - ALTERED MENTAL STATUS, UNSPECIFIED SNOMED Code(s): 851865906 (4) Suicidal ideation Current Visit: Yes Status: Acute Priority: High Code(s): R45.851 - SUICIDAL IDEATIONS SNOMED Code(s): 1798484
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
[2018-08-07] MEDS ORDERED: ZOLPIDEM 10 MG TAB PO PRN (21:13)
[2018-08-08] MEDS: SODIUM CHLORIDE 0.9% 1,000 ML IV SCH (05:32)
[2018-08-08] MEDS: 1: MVI, ADULT NO.4 WITH VIT K 10 ML, THIAMINE 100 MG, FOLIC ACID 1 MG in SODIUM CHLORIDE IV SCH ×8 (05:32→11:07)
[2018-08-08] MEDS: LORazepam 2 MG/ML INJ IV PRN ×2 (05:32→11:44)
[2018-08-08] MEDS: amLODIPine 5 MG TAB PO SCH (08:16)
[2018-08-08] MEDS: PANTOPRAZOLE 40 MG/10 ML VIAL IVP SCH (08:16)
[2018-08-08 09:30] LABS: Basophils % (A) 1 %; Eosinophils # (A) 0.1 k/uL (0-0.7); Eosinophils % (A) 3 %; HCT 44.9 % (39.0-53.0); HGB 15.8 gm/dL (13.0-17.5); Lymphocytes # (A) 0.9 k/uL (1.0-4.8); Lymphocytes % (A) 22 %; MCH 32.9 pg (25.0-35.0); MCHC 35.2 g/dL (31.0-37.0); MCV 93.4 fL (80.0-100.0); Mean Platelet Volume 7.5; Monocytes # (A) 0.4 k/uL (0-1.0); Monocytes % (A) 10 %; Neutrophils # (A) 2.5 k/uL (1.3-7.7); Neutrophils % (A) 64 %; Platelet Count 114 k/uL (150-450); RBC 4.81 m/uL (4.30-5.90); RDW 12.8 % (11.5-15.5)
[2018-08-08 09:55] LABS: Anion Gap 10 mmol/L; Blood Urea Nitrogen 11 mg/dL (9-20); Calcium 8.3 mg/dL (8.4-10.2); Carbon Dioxide 23 mmol/L (22-30); Chloride 105 mmol/L (98-107); Glucose 132 mg/dL (74-99); Potassium 3.3 mmol/L (3.5-5.1); Sodium 138 mmol/L (137-145)
[2018-08-08] MEDS ORDERED: Potassium Replacement Protocol 1 EACH MISC MISCELLANE PRN (10:58)
[2018-08-08] MEDS: THIAMINE 100 MG TAB PO SCH (11:37)
[2018-08-08] MEDS: POTASSIUM CHLORIDE ER 20 MEQ TAB.ER PO SCH ×2 (11:37→12:16)
[2018-08-08 14:51] VITALS: BP 177/91; PULSE 106; RESP 18; TEMP 98.9
--- NOTE | 2018-08-09 08:58 | DS ---
DISCHARGE SUMMARY FINAL DIAGNOSES: 1. Acute alcohol intoxication. 2. Depression. 3. Suicidal ideation, not a candidate for inpatient rehab per psych. 4. Hypertension. DISCHARGE DISPOSITION: The patient is being discharged in stable condition with guarded prognosis. HISTORY OF PRESENT ILLNESS: This 58-year-old gentleman admitted to the hospital with multiple medical problems as mentioned, the patient was monitored closely. Psychiatry saw the patient and cleared the patient for discharge. Please refer to psychiatric notes and staff notes for further information. On exam, vitals are stable. Cardiovascular: S1, S2. Abdomen soft. Nervous system: No focal deficits. DISCHARGE ADVICE AND MEDICATIONS: 1. Discharge diet is cardiac diet. 2. Activity limited until follow up. 3. Follow up with Dr. Veronica Trent in 1-2 days. 4. Follow up with psych as advised. 5. No alcohol. 6. Attend alcohol rehab. Attend AA. MEDICATIONS: 1. Norvasc 5 mg p.o. daily. 2. Folic acid 1 mg. 3. Multivitamins 1 p.o. daily. 4. Thiamine 100 mg p.o. daily. Once again, the patient is being discharged in stable condition with guarded prognosis. MMODL / IJN: [id number] /
== END 2018-08-08 15:25 | disposition home or self-care (01) ==
LOC: EC 02:39 → 3OBS 05:12 → 4MS4W 06:33
PROVIDERS: ADMIT Hospitalist; ATTEND Hospitalist
DX: F10.229 Alcohol dependence with intoxication, unspecified (principal); F10.239 Alcohol dependence with withdrawal, unspecified; R45.851 Suicidal ideations; I10 Essential (primary) hypertension; Y90.8 Blood alcohol level of 240 mg/100 ml or more; F43.10 Post-traumatic stress disorder, unspecified; F43.20 Adjustment disorder, unspecified; F41.9 Anxiety disorder, unspecified; F31.9 Bipolar disorder, unspecified; Z82.49 Family history of ischemic heart disease and other diseases of the circulatory system; Z82.5 Family history of asthma and other chronic lower respiratory diseases; Z79.899 Other long term (current) drug therapy; E66.9 Obesity, unspecified; Z68.39 Body mass index [BMI] 39.0-39.9, adult
CPT/HCPCS: 99284 ×2; 96374; 96376 ×3; 96361 ×2; 96375 ×2; 82075; 80048 ×2; 83735; 85025; 85027; G0378 ×4; G0480 ×2; J2060 ×3; J3411; J2405; C9113 ×3; 80320